=== PATIENT | female | born 1950 | race Caucasian/White ===

== ENCOUNTER 2020-05-27 11:54 | Emergency (ER) | payer SELFPAY ==
[~2020-05-27] VITALS: Ht 152.4 cm; Wt 75.0 kg
[2020-05-27] MEDS ORDERED: ACETAMINOPHEN 325MG TABLET PO ONE (12:30)
[2020-05-27] MEDS ORDERED: T3 PO (13:25)
[2020-05-27 13:35] VITALS: BP 158/89
== END 2020-05-27 13:54 | disposition home or self-care (01) ==
LOC: ER 13:43
DX: M79.18 Myalgia, other site (principal); W01.0XXA Fall on same level from slipping, tripping and stumbling without subsequent striking against object, initial encounter; Y93.89 Activity, other specified; Y92.018 Other place in single-family (private) house as the place of occurrence of the external cause
CPT/HCPCS: 71101; 99283